=== PATIENT | male | born 1970 | race Caucasian/White ===

== ENCOUNTER 2016-07-18 10:29 | Emergency (ER) | payer OTHER ==
[~2016-07-18] VITALS: Wt 102.0 kg
[~2016-07-18 10:29] MED LIST: MTF1000T; PROZAC
[2016-07-18] MEDS ORDERED: TRIAMCINOLONE ACET 40 MG/ML INJ INJ STA (11:52)
[2016-07-18] MEDS ORDERED: ACETAMINOPHEN/CODEINE #3 TAB PO ONE (12:00)
[2016-07-18] MEDS ORDERED: LIDOCAINE 1% (MDV) 20 ML INJ SC ONE (12:00)
--- NOTE | 2016-07-18 12:29 | RADRPT ---
PROCEDURE: Left Shoulder Series CLINICAL INDICATION: Left shoulder pain TECHNIQUE: 3 views of the left shoulder are available for review. COMPARISON: None available FINDINGS: There is normal mineralization and alignment of the bones of the left shoulder. No fracture or disl ocation is identified. Joint spaces are well maintained. The acromioclavicular joint is grossly un remarkable. The visualized portions of the left chest wall are within normal limits. The soft tissu es are unremarkable. IMPRESSION: 1. Unremarkable left shoulder x-ray series. RPTAT: KK .Mason Antonio MD, Date Time Electronically viewed and signed by .Mason Antonio MD, MD on 07/18/2016 12:29 .B/
[2016-07-18] MEDS ORDERED: TRAM50TA2 PO (13:01)
--- NOTE | 2016-07-18 13:04 | ERD ---
ER Documentation Chief Complaint Date/Time DATE: 07/18/16 TIME: 13:03 Chief Complaint LEFT SHOULDER PAIN X 1 MONTH HPI This 45-year-old male complains of left shoulder pain for last month. Denies any trauma or inciting events. His restricted range of motion due to pain but no weakness. Denies any fevers. ROS All systems reviewed and are negative except as per history of present illness. Medications Home Meds Active Scripts Tramadol HCl (Tramadol HCl) 50 Mg Tablet, 50 MG PO Q4 Y for PAIN, #20 TAB Prov:ANA GONZALEZ MD 07/18/16 Reported Medications Metformin* (Glucophage*) 1,000 Mg Tablet 06/26/10 [Prozac] TAB No Conflict Check 06/26/10 Allergies Allergies: Coded Allergies: naproxen (Verified Allergy, Mild, 06/18/11) PMhx/Soc History of Surgery: Yes (Ankle surgery) Anesthesia Reaction: No Hx Neurological Disorder: No Hx Respiratory Disorders: No Hx Cardiac Disorders: Yes (HTN) Hx Psychiatric Problems: No Hx Miscellaneous Medical Probl: Yes (DM) Hx Alcohol Use: Yes Hx Substance Use: Yes Hx Tobacco Use: Yes Smoking Status: Current every day smoker Physical Exam Vitals Vital Signs Date Time Temp Pulse Resp B/P Pulse Ox O2 Delivery O2 Flow Rate FiO2 07/18/16 10:37 98.0 81 18 169/102 99 Physical Exam Const: [] Alert, [id number]. Head: Atraumatic Eyes: Normal Conjunctiva ENT: Normal External Ears, Nose and Mouth. Neck: Full range of motion..~ No meningismus. Resp: Clear to auscultation bilaterally Cardio: Regular rate and rhythm, no murmurs Abd: Soft, non tender, non distended. Normal bowel sounds Skin: No petechiae or rashes Back: No midline or flank tenderness Ext: No cyanosis, or edema there is some tenderness in the left rotator cuff. There is no erythema, warmth. There is no restricted range of motion or weakness appreciated. Neur: Awake and alert Psych: Normal Mood and Affect Results 24 hrs Current Medications Medications (Trade) Dose Ordered Sig/Damián Route PRN Reason Start Time Stop Time Status Last Admin Dose Admin Triamcinolone Acetonide (Kenalog-40) 40 mg ONCE STAT INJ 07/18/16 11:52 07/18/16 11:54 DC Lidocaine (Xylocaine 1% (Mdv) 20 ml) 20 ml ONCE ONCE SC 07/18/16 12:00 07/18/16 12:01 DC Acetaminophen/ Codeine Phosphate (Tylenol No.3) 1 tab ONCE ONCE PO 07/18/16 12:00 07/18/16 12:01 DC 07/18/16 12:08 Procedures/MDM EKG: Rate/Rhythm: [Normal Sinus Rhythm] rate equals 78 QRS, ST, T-waves: [No changes consistent w/ acute ischemia] Impression: [No evidence of ischemia or arrhythmia]. Impression-normal EKG X-ray left shoulder 3V Interpreted by me: Bones: No fracture Joints: No dislocation Foreign body: None. Impression of normal left shoulder. Patient was advised of most effective treatment would be steroid and lidocaine injection to the left shoulder joint for what appears to be rotator cuff tendinitis. Patient agrees and counseling the risk of infection, atrophy. Procedure note-the left shoulder was prepped with alcohol. 3 cc of lidocaine with 20 mg Kenalog was injected intra-articularly left shoulder. Patient tolerated procedure well. Patient discharged home instructions for PCP and orthopedic follow-up. Return sooner for fevers, redness, new worsening symptoms. Patient was advised on the importance of range of motion to prevent stiffness and ice at home. Patient shows no evidence of septic arthritis, acute coronary syndrome, additional emergent causes of left shoulder pain. Departure Diagnosis: Primary Impression: Rotator cuff (capsule) sprain Encounter type: initial encounter Laterality: left Qualified Code: S43.422A - Sprain of left rotator cuff capsule, initial encounter Condition: Stable Patient Instructions: Shoulder Impingement Syndrome Referrals: JASPER PAGAN MD Additional Instructions: X-ray read as normal. Likely rotator cuff sprain. See orthopedist for further evaluation treatment. Recheck for redness, fevers, new symptoms. Recommend ice at home and range of motion exercises to prevent stiffness. ANA GONZALEZ MD Jul 18, 2016 13:04
[2016-07-18 13:22] VITALS: BP 134/94; PULSE 75; RESP 20
== END 2016-07-18 13:22 | disposition home or self-care (01) ==
LOC: FTE 10:29
DX: S43.422A Sprain of left rotator cuff capsule, initial encounter (principal); I10 Essential (primary) hypertension; E11.9 Type 2 diabetes mellitus without complications; F17.210 Nicotine dependence, cigarettes, uncomplicated; X58.XXXA Exposure to other specified factors, initial encounter; Y92.9 Unspecified place or not applicable; Z79.84 Long term (current) use of oral hypoglycemic drugs
CPT/HCPCS: 73030; J3301; Z7502; Z7610; 93005

== ENCOUNTER 2016-08-07 10:24 | Emergency (ER) | payer OTHER ==
[~2016-08-07] VITALS: Wt 88.5 kg
[~2016-08-07 10:24] MED LIST changes: +TRAM50TA2 PO
[2016-08-07] MEDS ORDERED: ACETAMINOPHEN 325 MG TAB PO ONE (11:00)
--- NOTE | 2016-08-07 11:24 | RADRPT ---
PROCEDURE: XR left foot. CLINICAL INDICATION: Foot pain TECHNIQUE: Three views are available for review. COMPARISON: None available FINDINGS: There is a 5 mm inferior calcaneal spur and 5 mm posterior calcaneal spur. There is otherwise normal mineralization, architecture and alignment. No fracture or osseous lesion is identified. The joint s are unremarkable. The soft tissues are unremarkable. IMPRESSION: 5 mm inferior calcaneal spur. 5 mm posterior calcaneal spur. RPTAT: HGDB .Ghassan Rosen MD, Date Time Electronically viewed and signed by .Ghassan Rosen MD, on 08/07/2016 11:23 .B/
--- NOTE | 2016-08-07 11:44 | ERD ---
ER Documentation Chief Complaint Date/Time DATE: 08/07/16 TIME: 11:41 Chief Complaint l. toe pain s/p dropping hammer on it on . HPI Patient is a 46-year-old male with a past history of prediabetes, hypertension and high cholesterol who presents to the ED with left toe pain after sustaining an injury where a hammer fell on his toe 2 days ago. He states that he does not have difficulty walking. He states that he has pain at his toe denies radiation of pain. Denies pain in his ankle or knee. Denies fever or chills. Denies redness or swelling. Denies abdominal pain, nausea, vomiting or diarrhea. Denies headache or dizziness. Denies chest pain, cough, shortness of breath or difficulty breathing. No other complaints. ROS All systems reviewed and are negative except as per history of present illness. Medications Home Meds Active Scripts Tramadol HCl (Tramadol HCl) 50 Mg Tablet, 50 MG PO Q4 Y for PAIN, #20 TAB Prov:ANA GONZALEZ MD 07/18/16 Reported Medications Metformin* (Glucophage*) 1,000 Mg Tablet 06/26/10 [Prozac] TAB No Conflict Check 06/26/10 Allergies Allergies: Coded Allergies: naproxen (Verified Allergy, Mild, 06/18/11) PMhx/Soc History of Surgery: Yes (Ankle surgery) Anesthesia Reaction: No Hx Neurological Disorder: No Hx Respiratory Disorders: No Hx Cardiac Disorders: Yes (HTN) Hx Psychiatric Problems: No Hx Miscellaneous Medical Probl: Yes (DM) Hx Alcohol Use: Yes Hx Substance Use: Yes Hx Tobacco Use: Yes Smoking Status: Never smoker FmHx Family History: No coronary disease, No diabetes, No other Physical Exam Vitals Vital Signs Date Time Temp Pulse Resp B/P Pulse Ox O2 Delivery O2 Flow Rate FiO2 08/07/16 10:26 98.6 76 20 149/82 99 Physical Exam GENERAL: Well-developed, well-nourished male. Appears in no acute distress. NECK: Supple. No lymphadenopathy or thyromegaly. No meningismus. negative kernig. negative brudinski. LUNG: Clear to auscultation bilaterally. No rhonchi, wheezing, rales or coarse breath sounds. HEART: Regular rate and rhythm. No murmurs, rubs or gallops. Extremities: Equal pulses bilaterally. No peripheral clubbing, cyanosis or edema. No unilateral leg swelling. Slight swelling with no erythema to the left great toe. Tenderness at the PIP joint. Negative Homans sign. No calf swelling or redness. No pain at the proximal fibula joint. No base of the fifth metatarsal pain. Range of motion intact. Strength 5 out of 5. NEUROLOGIC: Alert and oriented. Moving all four extremities. 5/5 strength in all extremities. Normal speech. Steady gait. SKIN: Normal color. Warm and dry. No rashes or lesions. Capillary refill < 2 seconds Results 24 hrs Current Medications Medications (Trade) Dose Ordered Sig/Damián Route PRN Reason Start Time Stop Time Status Last Admin Dose Admin Acetaminophen (Tylenol Tab) 650 mg ONCE ONCE PO 08/07/16 11:00 08/07/16 11:01 DC 08/07/16 11:06 Procedures/MDM ER COURSE: I kept the patient and/or family informed of laboratory and diagnostic imaging results throughout the emergency room course. EKG, MONITORS, & DIAGNOSTIC IMAGING: [place] [id number] Radiology Main Line: [phone] DIAGNOSTIC IMAGING REPORT Patient: TRAVON DOHERTY : 1970 Age: 46 Sex: M MR #: [id number] DOS: 08/07/16 1046 Ordering MD: MALCOLM TUCKER PA-C Location: [facility] Room/Bed: PROCEDURE: XR left foot. CLINICAL INDICATION: Foot pain TECHNIQUE: Three views are available for review. COMPARISON: None available FINDINGS: There is a 5 mm inferior calcaneal spur and 5 mm posterior calcaneal spur. There is otherwise normal mineralization, architecture and alignment. No fracture or osseous lesion is identified. The joints are unremarkable. The soft tissues are unremarkable. IMPRESSION: 5 mm inferior calcaneal spur. 5 mm posterior calcaneal spur. RPTAT: HGDB .Ghassan Rosen MD, MD Date Time Electronically viewed and signed by .Ghassan Rosen MD, on 08/07/2016 11:23 .B/ CC: MALCOLM TUCKER PA-C PROCEDURES: Mahogany tape assessment: Neurovascularly intact post mahogany tape placement with good fit. MEDICATIONS: Tylenol. 650. Tolerated medication well with no adverse reaction. MEDICAL DECISION MAKING: This is a 46-year-old man who presents with left toe pain after sustaining an injury where hammer fell on his toe 2 days ago. Vital signs were reviewed. Patient is afebrile. Patient is not hypoxic. Patient is not toxic or ill- appearing. Patient likely has a toe sprain. However cannot rule out ligament or tendon injury. X-rays read by radiologist is unremarkable for fracture dislocation. Low suspicion for dislocation, fracture, septic joint, compartment syndrome, osteomyelitis, cellulitis, avascular necrosis, neurological injury, vascular injury, tendon laceration. Patient states that his diabetes is well-controlled and he does not have any polyphagia, polydipsia or polyuria and does not have headache dizziness or abdominal pain. I have low suspicion for DKA, HON K. DISCHARGE: At this time, patient is stable for discharge and outpatient management with no new complaints during the ER course. Patient stated that he had pain medication at home and would be using that for his toe. Did not want medication here in the ED. Patient will be discharged home with instructions to recheck for new or worsening symptoms such as fever, nausea, weakness, LOC and to follow up with primary care in the next 1-2 days. Patient was advised to return to the ER for any new or worsening symptoms. Plan was discussed and patient and/or family understands and agrees. Home instructions were given. Departure Diagnosis: Primary Impression: Injury of toe Encounter type: initial encounter Laterality: left Qualified Code: S99.922A - Injury of toe, left, initial encounter Condition: Stable Patient Instructions: Sprain Toe Referrals: ALIDA DIANA (PCP) Additional Instructions: Call your primary care doctor TOMORROW for an appointment during the next 1-2 days.See the doctor sooner or return here if your condition worsens before your appointment time. continue ice, heat MALCOLM TUCKER PA-C Aug 07, 2016 11:44
== END 2016-08-07 11:42 | disposition home or self-care (01) ==
LOC: FTE 10:24
DX: S99.922A Unspecified injury of left foot, initial encounter (principal); I10 Essential (primary) hypertension; E11.9 Type 2 diabetes mellitus without complications; W20.8XXA Other cause of strike by thrown, projected or falling object, initial encounter; Y92.9 Unspecified place or not applicable; Z87.891 Personal history of nicotine dependence; Z79.84 Long term (current) use of oral hypoglycemic drugs
CPT/HCPCS: 73630; Z7502; Z7610

== ENCOUNTER 2017-06-18 22:13 | Emergency (ER) | payer SELFPAY ==
[~2017-06-18] VITALS: Ht 182.9 cm; Wt 86.0 kg
[2017-06-18 22:56] VITALS: Ht 182.9 cm; Wt 86.0 kg
[2017-06-21] MEDS ORDERED: GUAI473L22 PO (02:28)
[2017-06-21] MEDS ORDERED: ALBU8.5H3 INH (02:28)
[2017-06-21] MEDS ORDERED: ONDA4TAB14 PO (02:28)
[2017-06-21] MEDS ORDERED: ACET500C5 PO (02:28)
== END 2017-06-19 03:41 | disposition left against medical advice (07) ==
LOC: FTE 22:13
DX: Z53.21 Procedure and treatment not carried out due to patient leaving prior to being seen by health care provider (principal)

== ENCOUNTER 2017-06-20 22:41 | Emergency (ER) | END 2017-06-21 03:16 | disposition home or self-care (01) ==

== ENCOUNTER 2018-02-16 19:00 | Emergency (ER) | END 2018-02-16 21:40 | disposition home or self-care (01) ==